=== PATIENT | male | born 1935 | race Caucasian/White ===

== ENCOUNTER 2025-04-16 12:04 | Inpatient (IN) | payer OTHER, SELFPAY ==
[2025-04-16] VITALS (13 sets, daily range): BP systolic 145–209; BP diastolic 69–104; BMI 37.8
--- NOTE | 2025-04-16 08:02 | ED.GENMED ---
History of Present Illness
<Kerry Fletcher PA-C - Last Filed: 04/16/25 10:52>
General
Chief Complaint: Rectal Bleeding
Source: patient
Exam Limitations: none
Time Seen by Provider: 04/16/25 07:40
History of Present Illness
History of Present Illness:
89yoM with a history of peripheral artery disease, hypertension, hyperlipidemia, type 2 diabetes, and obesity presenting with his for evaluation of rectal bleeding. Patient started with diarrhea yesterday. He also had some abdominal
discomfort which felt like gas pains. He felt like he had to have a bowel movement this morning but when he went to the bathroom, he started having rectal bleeding. He reports 2 episodes of BRBPR. No history of rectal bleeding in the past. He is
chronically short of breath which is no worse than usual. He denies any chest pain, dizziness, syncope. Only blood thinner is a baby aspirin. Colonoscopy in 2007 showed medium sized internal hemorrhoids and diverticulosis.
Past History
<Kerry Fletcher PA-C - Last Filed: 04/16/25 10:52>
Past History
ED Past Medical History: HTN, Hypercholesterolemia and NIDDM
ED Past Surgical History: Appendectomy
Social History
Tobacco: Non-smoker
Drug: None
Personal:
Living: with family
Phy Exam
<Kerry Fletcher PA-C - Last Filed: 04/16/25 10:52>
General Physical Exam
General Presentation: well appearing and no apparent distress
General Skin: warm and dry
General Habitus: normal and elderly
General Mental: alert
ENT Exam
ENT Exam: normocephalic
Pulmonary Exam
Pulmonary Exam: no respiratory distress
Gastrointestinal Exam
Gastrointestinal Exam: soft, non distended and other (+Tenderness in periumbilical region. Abdomen obese. No rebound or guarding.)
Stool: other (Maroon colored stool obtained on digital rectal exam. Small non-thrombosed external hemorrhoid. )
Neurological Exam
Neurological Exam: alert
Corina Coma Scale
Eye Opening: Spontaneous
Verbal Response: Oriented
Motor Response: Obeys Commands
GCS Total Score: 15
Skin Exam
Skin Exam: normal color and warm/dry
Psychiatric Exam
Psychiatric Exam: normal mood/affect
<Mary Hughes MD - Last Filed: 04/16/25 10:19>
Corina Coma Scale
GCS Total Score: 15
Course
<Kerry Fletcher PA-C - Last Filed: 04/16/25 10:52>
Orders/Labs/Results
Orders:
Orders
04/16/25 07:53
CT Abd/pelvis W Iv Cont Urgent
Comment:
Reason For Exam: generalized abd pain, rectal bleeding
04/16/25 08:02
Type+Screen Urgent
Basic Metabolic Panel Urgent
Complete Blood Count/With Diff Urgent
Lipase Urgent
PT/INR [Prothrombin Time] Urgent
PTT Urgent
04/16/25 08:38
0.9% Sodium Chloride 500 ml [Nss] 500 ml IV BOLUS
04/16/25 09:00
LFT [Nwoyg-Qekb-Grsjvbq] Urgent
04/16/25 10:38
Piperacillin/Tazo 4.5 Gram [Zosyn] 4.5 gram in 100 ml IV NOW
Abnormal Lab Results
04/16/25
08:02
RBC 4.56 L 10^6/uL
(4.70-6.10)
MCV 96.9 H fL
(80.0-94.0)
MCH 32.0 H pg
(27.0-31.0)
RDW 15.8 H %
(11.5-14.5)
MPV 10.7 H fL
(7.4-10.4)
Abs Immat Gran (auto) 0.1 H 10^3/uL
(0-0.05)
Absolute Lymphs (auto) 0.7 L 10^3/uL
(1.2-3.4)
Immature Gran % 1.8 H %
(0-0.5)
Neutrophils % 78.3 H %
(42.2-75.2)
Lymphocytes % 9.7 L %
(20.5-51.1)
Sodium 134 L mmol/L
(135-145)
BUN 25 H mg/dl
(9-20)
Creatinine 1.5 H mg/dL
(0.7-1.3)
Glucose 119 H mg/dl
(70-99)
04/16/25 08:02
04/16/25 08:02
Vital Signs
Initial and Last Documented VS:
Initial Vital Signs
Temp Pulse Resp BP Pulse Ox
97.2 F 74 22 209/99 97
04/16/25 07:29 04/16/25 07:29 04/16/25 07:29 04/16/25 07:29 04/16/25 07:29
Last Documented Vital Signs
Temp Pulse Resp BP Pulse Ox
97.2 F 60 9 182/71 97
04/16/25 07:29 04/16/25 09:45 04/16/25 09:45 04/16/25 09:41 04/16/25 08:06
<Mary Hughes MD - Last Filed: 04/16/25 10:19>
Orders/Labs/Results
Orders:
Orders
04/16/25 07:53
CT Abd/pelvis W Iv Cont Urgent
Comment:
Reason For Exam: generalized abd pain, rectal bleeding
04/16/25 08:02
Type+Screen Urgent
Basic Metabolic Panel Urgent
Complete Blood Count/With Diff Urgent
Lipase Urgent
PT/INR [Prothrombin Time] Urgent
PTT Urgent
04/16/25 08:38
0.9% Sodium Chloride 500 ml [Nss] 500 ml IV BOLUS
04/16/25 09:00
LFT [[id number]-Vhsm-Llyzmmy] Urgent
04/16/25 10:38
Piperacillin/Tazo 4.5 Gram [Zosyn] 4.5 gram in 100 ml IV NOW
Abnormal Lab Results
04/16/25
08:02
RBC 4.56 L 10^6/uL
(4.70-6.10)
MCV 96.9 H fL
(80.0-94.0)
MCH 32.0 H pg
(27.0-31.0)
RDW 15.8 H %
(11.5-14.5)
MPV 10.7 H fL
(7.4-10.4)
Abs Immat Gran (auto) 0.1 H 10^3/uL
(0-0.05)
Absolute Lymphs (auto) 0.7 L 10^3/uL
(1.2-3.4)
Immature Gran % 1.8 H %
(0-0.5)
Neutrophils % 78.3 H %
(42.2-75.2)
Lymphocytes % 9.7 L %
(20.5-51.1)
Sodium 134 L mmol/L
(135-145)
BUN 25 H mg/dl
(9-20)
Creatinine 1.5 H mg/dL
(0.7-1.3)
Glucose 119 H mg/dl
(70-99)
04/16/25 08:02
04/16/25 08:02
Vital Signs
Initial and Last Documented VS:
Initial Vital Signs
Temp Pulse Resp BP Pulse Ox
97.2 F 74 22 209/99 97
04/16/25 07:29 04/16/25 07:29 04/16/25 07:29 04/16/25 07:29 04/16/25 07:29
Last Documented Vital Signs
Temp Pulse Resp BP Pulse Ox
97.2 F 60 9 182/71 97
04/16/25 07:29 04/16/25 09:45 04/16/25 09:45 04/16/25 09:41 04/16/25 08:06
<Kerry Fletcher PA-C - Last Filed: 04/16/25 10:52>
MDM/Problems Addressed
Differential Diagnosis Includes:
89yoM here after 2 episodes of BRBPR this morning. Started with diarrhea and abd discomfort yesterday. Patient is hypertensive with otherwise stable vitals. He is well appearing in no distress. Maroon colored stool noted on rectal exam. Differential
diagnosis includes: hemorrhoidal bleeding, diverticular bleeding, colitis, AVM, malignancy
Initial ED plan: Check abdominal labs, coags, type and screen, and CT abdomen.
<Kerry Fletcher PA-C - Last Filed: 04/16/25 10:52>
*Pulse Oximetry
SaO2: 97
Oxygen Mode of Delivery: Room air
Patient hypoxic: no
*Critical Care Note
Total Time (30-74mins, 75-104mins- exclusive of procedures): Not Applicable
<Kerry Fletcher PA-C - Last Filed: 04/16/25 10:52>
Update Note
Update Note:
Hemoglobin is normal at 14.6. Creatinine 1.[address] shows evidence of very mild diverticulitis. IV Zosyn ordered although he is not meeting any SIRS criteria. Will admit for further management.
ED Attending Note
<Kerry Fletcher PA-C - Last Filed: 04/16/25 10:52>
-
Portions of this chart may have been created with voice recognition software.� Occasional wrong word or��sound alike� substitutions may have occurred due to the inherent limitations of voice recognition software.
<Mary Hughes MD - Last Filed: 04/16/25 10:19>
ED Attending Note
Patient seen and examined by attending physician: Yes
I performed the substantive portion of visit, reviewed & personally made and approve the management plan that is documented in note by myself or ELDA.: Yes
ED Attending Note:
Patient appears nontoxic but pale. Patient has periumbilical abdominal tenderness on exam without rebound or guarding. He is breathing comfortably. We are awaiting CT results.
Discharge Plan
Departure
Patient Disposition: Admit
Date of Disposition: 04/16/25
Time of Disposition: 10:40
Presentation/result/management discussed w/ accepting MD/DO: Hospitalist
Discharge Problem:
Rectal bleeding, Diverticulitis
Prescriptions:
No Action
metformin 500 MG tablet
1,000 mg PO DAILY
allopurinol 100 MG tablet
100 mg PO BID
aspirin 81 MG tablet,delayed release (DR/EC)
81 mg PO DAILY
omeprazole 20 MG capsule,delayed release(DR/EC)
20 mg PO DAILYPRN PRN (Reason: acid reflux)
fluticasone propionate 1 SPRAY spray,suspension
1 spray intranasal DAILYPRN PRN (Reason: congestion)
metformin 500 mg Tablet
500 mg PO QPM
omega 5-hgn-fzk-fish oil [Fish Oil] 1,000 (120-180) mg Capsule
2 cap PO DAILY
furosemide [Lasix] 40 mg Tablet
40 mg PO DAILY
carvedilol [Coreg] 12.5 mg Tablet
12.5 mg PO BID
glimepiride 1 mg Tablet
1 mg PO DAILY
valsartan 320 mg Tablet
320 mg PO DAILY
dorzolamide-timolol (PF) [Cosopt (PF)] 2-0.5 % Dropperette
1 drp LEFT EYE BID
Referrals:
Ramon Acosta MD [Family Provider]
Interventions
Interventions:
*Risk Screen - Suicide Last Done: 04/16/25 07:29
*General Assessment Last Done: 04/16/25 07:29
*Neglect/Abuse Screening Last Done: 04/16/25 07:29
*ED- Fall Risk Assessment Last Done: 04/16/25 07:29
*ED COVID-19 Vaccine History Last Done: 04/16/25 07:29
*ED Influenza Vaccine History Last Done: 04/16/25 07:29
JC-Pqyptc-Uoqcqnjbae Assessment Last Done: 04/16/25 08:39
ED- Cardiac Assessment Last Done: 04/16/25 08:39
ED- Pulmonary Assessment Last Done: 04/16/25 08:39
Discharge Date and Time
Print Language: KINYARWANDA
[2025-04-16 08:14] LABS: Hematocrit 44.2 % (39.0-52.0); Hemoglobin 14.6 g/dL (13.0-18.0); Mean Corp Hgb Conc. 33.0 g/dL (33.0-37.0); Mean Corpuscular Volume 96.9 fL (80.0-94.0); Nucleated Red Blood Cells % 0 % (-); Platelet Count 169 10^3/uL (130-400); Red Cell Dist. Width 15.8 % (11.5-14.5)
[2025-04-16 08:22] LABS: INR 1.04; PT 13.9 Sec (11.4-14.6)
[2025-04-16 08:23] LABS: APTT 29.2 Sec (23.4-35.0)
[2025-04-16 08:37] LABS: Blood Urea Nitrogen 25 mg/dl (9-20); Calcium 8.8 mg/dl (8.4-10.2); Carbon Dioxide 25 mmol/L (22-30); Chloride 106 mmol/L (98-107); Glucose 119 mg/dl (70-99); Lipase 142 U/L (23-300); Sodium 134 mmol/L (135-145); eGFR 44.78
[2025-04-16 09:30] LABS: ALT (SGPT) 17 U/L (0-50); AST (SGOT) 21 U/L (17-59); Albumin 3.6 g/dl (3.5-5.0); Alkaline Phosphatase 46 U/L (38-126); Total Protein 6.4 g/dl (6.3-8.2)
[2025-04-16] MEDS: NSS 500 IV (09:40)
[2025-04-16] MEDS: ZOSYN 100 IV (11:15)
--- NOTE | 2025-04-16 11:25 | CM ---
Patient seen at bedside in ED. Patient lives with in 2 story home. Patient PCP is Dr. Acosta and he uses the [facility] in [place]. Patient has 2 stair lifts for to use and no other DME for patient. Patient is primary caregiver for who does
use a walker. Patient to call daughter for supports and transporting her home. CM will continue to follow for discharge planning needs.
Plan; home with patient ; watch for home VN vs no needs pending medical treatment plan
--- NOTE | 2025-04-16 11:47 | HPS.HSE ---
Addendum entered and electronically signed by Farhan Weldon DO 04/16/25 13:47:
Spoke with both Dr. Padgett and Dr. Julita Rivera regarding need for long-term aspirin.
Neither alliance party could find a valid indication for aspirin.
Therefore we will not resume on discharge.
Original Note:
Family Physician
-
Family Physician: Ramon Acosta MD
Chief Complaint
-
Bloody Stools
History of Present Illness
89 yo male, here accompanied by his , complaining of 2-3 episodes of bright red bloody bowel movements yesterday, some abdominal discomfort as well. Mild nausea but no vomiting.
Today had maroon colored stools.
Denies hx of the same.
Denies chest pain, SOB, lightheadedness, fevers, chills.
Medical History
Past Medical History
Past Medical History: Reports Other
Additional Past Medical History:
DM 2
Hyperlipidemia
Essential hypertension
PAD
BPH
Hemorrhoids
Diverticulosis
Past Surgical History: Reports Appendectomy and Orthopedic
Social History
Tobacco: Former Smoker
Alcohol: Former
Drug: None
Personal:
Living: With Family
Employment: Retired
Family History
Family History: Not pertinent
Allergies / Home Medications
Allergies reflects when Allergies were last updated in [facility].
Home Medications with original date entered in [facility]
Allergy/Medication List:
Allergies
Allergy/AdvReac Type Severity Reaction Status Date / Time
indomethacin (From Indocin) Allergy abdominal Verified 04/16/25 07:28
discomfort
Home Medications
allopurinol 100 mg tablet 100 mg PO BID Gout 07/05/17
aspirin 81 mg tablet,delayed release 81 mg PO DAILY Blood Clot Prevention/Tx 07/05/17
fluticasone propionate 50 mcg/actuation nasal spray,suspension 1 spray intranasal DAILYPRN PRN congestion 07/05/17
metformin 500 mg tablet 1,000 mg PO DAILY Diabetes 07/05/17
omeprazole 20 mg capsule,delayed release 20 mg PO DAILYPRN PRN acid reflux 07/05/17
carvedilol 12.5 mg tablet (Coreg) 12.5 mg PO BID Blood Pressure 04/16/25
dorzolamide-timolol (PF) 2 %-0.5 % eye drops in a dropperette (Cosopt (PF)) 1 drp LEFT EYE BID Eye Condition 04/16/25
furosemide 40 mg tablet (Lasix) 40 mg PO DAILY Fluid Retention/Swelling 04/16/25
glimepiride 1 mg tablet 1 mg PO DAILY Diabetes 04/16/25
metformin 500 mg tablet 500 mg PO QPM Diabetes 04/16/25
omega 4-dcw-arq-fish oil 1,000 mg (120 mg-180 mg) capsule (Fish Oil) 2 cap PO DAILY Supplement 04/16/25
valsartan 320 mg tablet 320 mg PO DAILY Blood Pressure 04/16/25
Review of Systems
-
History Source: Patient and Family
A 12 point ROS was completed and negative except as noted: Yes
Abdomen/GI: Reports Abdominal Pain, Nausea and Bloody Stools; Denies Vomiting
Physical Exam
Vital Signs
Vital Signs
Temp Pulse Resp BP Pulse Ox
97.2 F 60 9 182/71 97
04/16/25 07:29 04/16/25 09:45 04/16/25 09:45 04/16/25 09:41 04/16/25 08:06
Physical Exam
General: Well Developed, Well Nourished, No Apparent Distress and Comfortable
HEENT: NormoCephalic, Anicteric and Moist mucous membranes
Respiratory: Clear
Cardiac: S1/S2 and Regular Rhythm
GI: Soft, Non Distended and Tender (Very mild right upper quadrant tenderness, no guarding)
Genito-urinary: Deferred by me
Musculoskeletal: No Clubbing, No Cyanosis, Edema, Left Lower Extremity and Edema, Right Lower Extremity
Skin: Warm and Dry
Neuro: AO x 3
Hematologic/Lymphatic: No Lymphadenopathy
Psych: Calm
Laboratory Results
-
04/16/25 08:02
04/16/25 08:02
Laboratory Results
PT 13.9 Sec (11.4-14.6) 04/16/25 08:02
INR 1.04 04/16/25 08:02
APTT 29.2 Sec (23.4-35.0) 04/16/25 08:02
Total Bilirubin 0.6 mg/dl (0.2-1.3) 04/16/25 09:00
AST 21 U/L (17-59) 04/16/25 09:00
ALT 17 U/L (0-50) 04/16/25 09:00
Alkaline Phosphatase 46 U/L (38-126) 04/16/25 09:00
Lipase 142 U/L (23-300) 04/16/25 08:02
Impression/Plan
-
Acute lower GI bleed -likely diverticular. Less likely ischemic or inflammatory, or infectious. Hemoglobin 14.6. Stop further aspirin, as there is no strong indication from what I see. Will discuss with his registered dental assistant rda and vascular surgeon.
Patient states aspirin was started by his primary care doctor.
Admit to MedSurg. Monitor hemoglobin. Clear liquid diet.
Hemodynamically stable.
I did speak with GI, Dr. Carreon, he states there is no strong indication for GI consult currently given normal hemoglobin. He has no plans for endoscopic evaluation.
CT scan reviewed, shows very mild sigmoid diverticulitis. However, clinically I doubt diverticulitis. Will hold further antibiotics.
Hyponatremia -sodium 134. Will just monitor for now. Could be related to blood loss.
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 Will recheck in the morning. Previous creatinine in our system was from 2018.
PAD -known to vascular surgery, Dr. Padgett. Patient denies history of lower extremity revascularization.
Essential hypertension -blood pressure elevated. Resume home meds.
DM 2 without hyperglycemia -hold glimepiride and metformin, use low resistance aspart scale.
Hyperlipidemia
Nephrolithiasis -noted to have nonobstructing left renal stone on CT. Asymptomatic.
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 Watch for any signs of urinary retention.
History of gout -continue allopurinol.
Obesity due to excess calories
DNR -confirmed with patient.
updated at the bedside.
[2025-04-16 17:09] LABS: Glucose - Point of Care 96 mg/dl (70-99)
[2025-04-16] MEDS: NSS 1000 IV (17:09)
--- NOTE | 2025-04-16 17:55 | PTCARENOTE ---
Updated patient's daughter at the bedside. She is concerned about the fact that patient is admitted with rectal bleeding, with no GI consult. This RN informed by Dr. Weldon to read the note for any updates--no further communication provided other
than notes in [facility]. Daughter unhappy. This RN apologetic and unable to provide further answers for family.
[2025-04-16] MEDS: COREG 12.5 MG PO (20:59)
[2025-04-16] MEDS: ZYLOPRIM 100 MG PO (20:59)
[2025-04-16] MEDS: TIMOPTIC 0.5% OPHTHALMIC SOLUTION 1 DROP LEFT EYE (21:00)
[2025-04-16] MEDS: TRUSOPT 2% OPHTHALMIC SOLUTION 1 DROP LEFT EYE (21:01)
[2025-04-16 21:27] LABS: Glucose - Point of Care 106 mg/dl (70-99)
[2025-04-17] MEDS: NSS 1000 IV (04:35)
[2025-04-17 07:04] LABS: Hematocrit 37.9 % (39.0-52.0); Hemoglobin 12.1 g/dL (13.0-18.0); Mean Corp Hgb Conc. 31.9 g/dL (33.0-37.0); Mean Corpuscular Volume 101.6 fL (80.0-94.0); Nucleated Red Blood Cells % 0 % (-); Platelet Count 167 10^3/uL (130-400); Red Cell Dist. Width 15.4 % (11.5-14.5)
[2025-04-17 07:30] LABS: Blood Urea Nitrogen 22 mg/dl (9-20); Calcium 8.1 mg/dl (8.4-10.2); Carbon Dioxide 25 mmol/L (22-30); Chloride 107 mmol/L (98-107); Estimated Creatinine Clearance 37 ml/min; Glucose 94 mg/dl (70-99); Potassium 4.3 mmol/L (3.5-5.1); Sodium 135 mmol/L (135-145); eGFR 38.53
[2025-04-17 07:38] LABS: Glucose - Point of Care 101 mg/dl (70-99)
[2025-04-17 07:50] VITALS: BP 154/92
[2025-04-17] MEDS: DIOVAN 320 MG PO (08:05)
[2025-04-17] MEDS: LASIX 40 MG PO (08:05)
[2025-04-17] MEDS: ZYLOPRIM 100 MG PO ×2 (08:05→21:11)
[2025-04-17] MEDS: COREG 12.5 MG PO ×2 (08:05→21:22)
[2025-04-17] MEDS: TIMOPTIC 0.5% OPHTHALMIC SOLUTION 1 DROP LEFT EYE ×2 (08:07→21:10)
[2025-04-17] MEDS: TRUSOPT 2% OPHTHALMIC SOLUTION 1 DROP LEFT EYE ×2 (08:09→21:10)
--- NOTE | 2025-04-17 08:42 | W.PN.HOSP.TC ---
Today's Communication/Plan
-
GI consult
Monitor hemoglobin
Assessment / Plan
Assessment / Plan
Gen-AAOx3, NAD
HEENT-NC, AT, anicteric, clear oral mm
Neck-supple
CV-reg, no M, +S1/S2
Lungs-clear B/L
Abd-soft, NT, ND
Ext-no edema
Musculoskeletal-no cyanosis, clubbing
Skin-warm and dry
Neuro-grossly non-focal
Psych-calm, cooperative
Acute lower GI bleed -likely diverticular. Less likely ischemic or inflammatory, or infectious. Hemoglobin 14.6. Stop further aspirin, as there is no strong indication from what I see. Will discuss with his multi media specialist and vascular surgeon.
Patient states aspirin was started by his primary care doctor.
Hemoglobin down slightly to 12.1.
Hemodynamically stable.
CT scan reviewed, shows very mild sigmoid diverticulitis. However, clinically I doubt diverticulitis. Will hold further antibiotics.
Passed 3 bloody bowel movements yesterday, maroon stool this morning. Will ask GI for formal consult. Consideration of flexible sigmoidoscopy versus colonoscopy.
Currently on clear liquid diet.
Hyponatremia -sodium improved, 135.
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 Will recheck in the morning. Previous creatinine in our system was from 2018.
PAD -known to vascular surgery, Dr. Padgett. Patient denies history of lower extremity revascularization.
Essential hypertension -continue home medications.
DM 2 without hyperglycemia -hold glimepiride and metformin, use low resistance aspart scale. Hemoglobin A1c pending. Glucose 94 this morning.
Hyperlipidemia
Nephrolithiasis -noted to have nonobstructing left renal stone on CT. Asymptomatic.
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 Watch for any signs of urinary retention.
History of gout -continue allopurinol.
Obesity due to excess calories
DNR -confirmed with patient.
Anticipated Discharge: 24 - 48 hours
Subjective/Interval History
-
Date of Service: April 17, 2025
Patient seen and examined. Complaining of generalized abdominal discomfort. Passing maroonish stools this morning.
Objective Data
-
Labs:
Laboratory Results
04/17/25
06:29
WBC 6.8
Hgb 12.1 L
Hct 37.9 L
Plt Count 167
Sodium 135
Potassium 4.3
Chloride 107
Carbon Dioxide 25
BUN 22 H
Creatinine 1.7 H
Glucose 94
Calcium 8.1 L
Vital Signs:
Vital Signs
Temp Pulse Resp BP Pulse Ox
98.2 F 67 18 154/92 96
04/17/25 07:50 04/17/25 07:50 04/17/25 07:50 04/17/25 07:50 04/17/25 07:50
I&O
04/16/25 04/17/25 04/18/25
06:59 06:59 06:59
Intake Total 700 / 700
Balance 700 / 700
Review of Systems
-
History Source: Patient
All other systems: Reviewed and negative
[2025-04-17 09:14] LABS: Glycohemoglobin (HgbA1c) 6.2 % (4.0-5.9)
--- NOTE | 2025-04-17 09:42 | CON.GI ---
Addendum entered and electronically signed by João Carreon DO 04/17/25 11:48:
I saw and examined the patient.
The [employer]'s note was reviewed and I agree with the note.
Comment: Mr. Navarrete is a very pleasant 89 y.o male with a past medical history of HTN, HLD, NIDDM, CKD, PAD (previously on ASA), obesity, colon polyps, and diverticulosis who presented to the ED with painless, large volume hematochezia. Denies any
prior history of GI bleeding in the past. On daily ASA but no other anticoagulations or NSAIDs. Last colonoscopy 2013 unremarkable aside from diverticulosis and internal hemorrhoids. No prior history of diverticular bleeding or diverticulitis in the
past. Given his multiple episodes (5-6) of large volume painless bloody stools, came to the ED for further evaluation. HD-stable without compensatory tachycardia and found to have Hgb 14.6 CT Abd/pelvis 04/16/25 revealed findings concerning for very
mild proximal sigmoid colon acute diverticulitis and hepatic fatty infiltration along with severe prostate hypertrophy. He denied any LLQ abdominal pain or other fevers/chills. He was managed conservatively on admission however repeat labs with Hgb
14.6 -> 12.1 this AM. Currently, reports resolving bloody stools and passed a small amount of old dark blood and small amount with wiping. Clinically, his presentation is most consistent with a diverticular hemorrhage. No other concern for
diverticulitis and suspect likely an overcall and suspect likely from blood resulting in reactive changes. Does not seem consistent with hemorrhoidal bleed. Cannot exclude potential bleeding angioectasia/AVM or potential bleeding polyp/lesion
although seems much less likely. Clinically, his bleeding seems to have lessened and suspect his previous hemoglobin of 14 was likely hemoconcentrated and subsequent drop to 12 likely from his previous bleed and lag in his blood work. Currently,
he denies any further large-volume hematochezia or other symptoms suggest diverticulitis. Given his Hgb level and overall clinical stability, favor continued monitoring for signs to suggest recurrent bleeding and would defer any plans for
colonoscopy at this time. If patient were to have recurrent bleeding would obtain stat CTA and attempts of localization. Would defer prepping patient for a colonoscopy and ongoing monitoring at this time.
Recommendations:
- Continue CLD today
- Trend Hgb with CBC q daily
- Agree with holding IV abx as no concern for diverticulitis and suspect changes on CT likely from blood products
- If recurrent large volume hematochezia, significant drop in Hgb (> 2 grams), or HD-instability would obtain stat CTA in attempts of localization and consult IR if (+)
- No plans for a colonoscopy at this time as without any further signs to suggest recurrent bleeding. However, would reconsider pending clinical course
- Could consider an eventual colonoscopy as outpatient for further evaluation if patient wishes although would need to review risks/benefits given his age
- Strict avoidance of all NSAIDs
- Rest of care as per primary team
GI team will continue to follow. Please call with any questions or concerns.
Original Note:
Consultation
-
Date/Time Consultation Requested: 04/17/25844
Date/Time Consultation Performed: 04/17/25944
Requesting Provider: Farhan Weldon DO
Performing Provider: RADHA Maurer, João Carreon DO
Reason for Consultation: rectal bleeding
Medical History
Chief Complaint / HPI
Chief Complaint: rectal bleeding
History of Present Illness:
Pt is a 89yo with hx HTN, hyperlipidemia, NIDDM, BPH,CKD, PAD on daily ASA, diverticulosis, hemorrhoids, hx colon polyps, obesity, gout, appe, tonsillectomy, prior ortho surgery with noted onset of rectal bleeding with red then maroon stool. On
admission noted with hbg 14.6 with drop to 12.1 after admission. In review with patient on admission noted with some lower abdominal pain initial diarrhea with large volumes of bright red blood per rectum. He continued with some darker red less
volume stools after admission. CT with IV contrast on admission with mild proximal sigmoid diverticulitis, mild fatty infiltration, renal cysts, prostate hypertrophy. Pt otherwise denies odynophagia, dysphagia, GERD, nausea, vomiting, current
abdominal pain, diarhea, constipation or black stools. No anticoagulation use prior to admission.
09/2012- Dr. Rosalia hills in bowel habits colonoscopy- diverticulosis, IH
01/2008 Dr. Wiseman for hx polyps, colonoscopy diverticulosis, IH
Past Medical History
Past Medical History: HTN, Hypercholesterolemia, NIDDM, Renal Failure (CKD) and Other (glaucoma, BPH, PAD, diverticulosis, hemorrhoids, colon polyps, obesity, gout )
Past Surgical History: Appendectomy, Orthopedic, Tonsilectomy and Other (thyroid cyst removal)
Social History
Tobacco: Former Smoker
Alcohol: Former
Drug: None
Personal:
Living: With Family
Employment: Retired
Family History
Family History: Other (mother with ovarian CA)
Allergies / Home Medications
Allergy/AdvReac Type Severity Reaction Status Date / Time
indomethacin (From Indocin) Allergy abdominal Verified 04/16/25 07:28
discomfort
�Medication �Instructions �Recorded
allopurinol 100 mg tablet 100 mg PO BID Gout 07/05/17
aspirin 81 mg tablet,delayed 81 mg PO DAILY Blood Clot 07/05/17
release Prevention/Tx
fluticasone propionate 50 1 spray intranasal DAILYPRN PRN 07/05/17
mcg/actuation nasal congestion
spray,suspension
metformin 500 mg tablet 1,000 mg PO DAILY Diabetes 07/05/17
omeprazole 20 mg capsule,delayed 20 mg PO DAILYPRN PRN acid reflux 07/05/17
release
carvedilol 12.5 mg tablet (Coreg) 12.5 mg PO BID Blood Pressure 04/16/25
dorzolamide-timolol (PF) 2 %-0.5 % 1 drp LEFT EYE BID Eye Condition 04/16/25
eye drops in a dropperette (Cosopt
(PF))
furosemide 40 mg tablet (Lasix) 40 mg PO DAILY Fluid 04/16/25
Retention/Swelling
glimepiride 1 mg tablet 1 mg PO DAILY Diabetes 04/16/25
metformin 500 mg tablet 500 mg PO QPM Diabetes 04/16/25
omega 3-yrl-pwb-fish oil 1,000 mg 2 cap PO DAILY Supplement 04/16/25
(120 mg-180 mg) capsule (Fish Oil)
valsartan 320 mg tablet 320 mg PO DAILY Blood Pressure 04/16/25
Review of Systems
-
History Source: Patient and Family
Constitutional: Reports No Symptoms
EENT: Reports No Symptoms
Respiratory: Reports No Symptoms
Cardiac: Reports No Symptoms
Abdomen/GI: Reports Abdominal Pain (at onset now resolved ) and Bloody Stools
: Reports No Symptoms
Musculoskeletal: Reports No Symptoms
Skin: Reports No Symptoms
Neurological: Reports No Symptoms
Endocrine: Reports No Symptoms
Hematologic/Lymphatic: Reports Bleeding
Vital Signs
Temp Pulse Resp BP Pulse Ox
98.2 F 67 18 154/92 96
04/17/25 07:50 04/17/25 07:50 04/17/25 07:50 04/17/25 07:50 04/17/25 07:50
Physical Exam
Exam
General: Well Developed, Well Nourished and No Apparent Distress
HEENT: Normocephalic and Anicteric
Respiratory: Clear
Cardiac: Regular Rhythm
GI: Soft, Non Tender and Non Distended
Rectal: Other (bright red per nursing record )
Musculoskeletal: No Clubbing and No Cyanosis
Skin: Warm and Dry
Neuro: Awake, Alert and AO x 3
Psych: Calm
Results
WBC 6.8 10^3/uL (4.8-10.8) 04/17/25 06:29
Hgb 12.1 g/dL (13.0-18.0) L 04/17/25 06:29
Hct 37.9 % (39.0-52.0) L 04/17/25 06:29
MCV 101.6 fL (80.0-94.0) H 04/17/25 06:29
Plt Count 167 10^3/uL (130-400) 04/17/25 06:29
Absolute Neuts (auto) 5.2 10^3/uL (1.4-6.5) 04/17/25 06:29
PT 13.9 Sec (11.4-14.6) 04/16/25 08:02
INR 1.04 04/16/25 08:02
APTT 29.2 Sec (23.4-35.0) 04/16/25 08:02
Sodium 135 mmol/L (135-145) 04/17/25 06:29
Potassium 4.3 mmol/L (3.5-5.1) 04/17/25 06:29
Chloride 107 mmol/L (98-107) 04/17/25 06:29
Carbon Dioxide 25 mmol/L (22-30) 04/17/25 06:29
BUN 22 mg/dl (9-20) H 04/17/25 06:29
Creatinine 1.7 mg/dL (0.7-1.3) H 04/17/25 06:29
Calcium 8.1 mg/dl (8.4-10.2) L 04/17/25 06:29
Total Bilirubin 0.6 mg/dl (0.2-1.3) 04/16/25 09:00
AST 21 U/L (17-59) 04/16/25 09:00
ALT 17 U/L (0-50) 04/16/25 09:00
Alkaline Phosphatase 46 U/L (38-126) 04/16/25 09:00
Lipase 142 U/L (23-300) 04/16/25 08:02
Diagnostic Image Results:
04/16/25 CT Abd/pelvis W Iv Cont
IMPRESSION: Findings suggesting very mild proximal sigmoid colon acute diverticulitis. No evidence of perforation nor abscess formation. New. Clinical correlation recommended.
mild hepatic fatty infiltration. Stable. Right renal cyst. Enlarged. Nonobstructing left renal stone. New. Severe prostate hypertrophy. Progressed
Prior GI Procedures:
Colonoscopy:
09/2012- Dr. Rosalia hills in bowel habits colonoscopy- diverticulosis, IH
01/2008 Dr. Wiseman for hx polyps, colonoscopy diverticulosis, IH
Assessment / Plan
-
Pt is a 89yo with hx HTN, hyperlipidemia, NIDDM, BPH, CKD, PAD on daily ASA, diverticulosis, hemorrhoids, hx colon polyps, obesity, gout, appe, tonsillectomy, prior ortho surgery with noted onset of rectal bleeding with red then maroon stool. On
admission noted with hbg 14.6 with drop to 12.1 after admission. In review with patient on admission noted with some lower abdominal pain initial diarrhea with large volumes of bright red blood per rectum. He continued with some darker red less
volume stools after admission. CT with IV contrast on admission with mild proximal sigmoid diverticulitis, mild fatty infiltration, renal cysts, prostate hypertrophy. Pt otherwise denies odynophagia, dysphagia, GERd, nausea, vomiting, current
abdominal pain, diarhea, constipation or black stools. No anticoagulation use prior to admission.
09/2012- Dr. Rosalia hills in bowel habits colonoscopy- diverticulosis, IH
01/2008 Dr. Wiseman for hx polyps, colonoscopy diverticulosis, IH
-sudden onset of rectal bleeding- large volume on onset
-mild abdominal pain at onset with mild diverticulitis on CT -- pain now resolved
-CKD
-PAD on daily ASA
-hx diverticulosis
-hx colon polyps
-hx hemorrhoids
other med problems:
HTN, hyperlipidemia, NIDDM, BPH, obesity, appe, tonsillectomy, prior ortho surgery, gout
PLAN:
etiology of symptoms with concern for diverticular bleed with less blood passed today
pain now resolved less likely diverticulitis as noted on CT--no fever or WBC elevation, agree with holding antibiotics
clear diet-- nursing will text prior to dinner to see if can advance if no further bleeding
if recurrent bleeding consider CTA if large volume vs need for colonoscopy
if resolved Dr. Carreon to review risk/benefit of eventual colonoscopy OP
trend hbg with some drop after admission 14.6--12.1
family updated - reviewed if any large volume recurrent bleeding after discharge to return, all questions answered
-
-
Thank you for consultation and allowing me to participate in the patient's care. Please call the professor of business administration GI physician during the after hours with any questions or concerns.
[2025-04-17 11:55] LABS: Glucose - Point of Care 102 mg/dl (70-99)
[2025-04-17 15:59] VITALS: BP 149/85
[2025-04-17 17:48] LABS: Glucose - Point of Care 76 mg/dl (70-99)
[2025-04-17 21:18] LABS: Glucose - Point of Care 100 mg/dl (70-99)
[2025-04-17 23:07] VITALS: BP 173/92
--- NOTE | 2025-04-18 06:21 | W.PN.GI.CBS2 ---
Today's Communication / Plan
-
No further bleeding and stable H/h, suspect resolved diverticular bleed. May advance diet as tolerated to low-fiber, low-residue diet. No plans for a colonoscopy while inpatient, however still recommend outpatient follow-up with GI to further
discuss. Rest of care as outlined below. GI will sign-off, please re-contact with any questions or concerns.
Assessment / Plan
-
Mr. Navarrete is a very pleasant 89 y.o male with a past medical history of HTN, HLD, NIDDM, CKD, PAD (previously on ASA), obesity, colon polyps, and diverticulosis who presented to the ED with painless, large volume hematochezia. Denies any prior
history of GI bleeding in the past. On daily ASA but no other anticoagulations or NSAIDs. Last colonoscopy 2013 unremarkable aside from diverticulosis and internal hemorrhoids. No prior history of diverticular bleeding or diverticulitis in the past.
Given his multiple episodes (5-6) of large volume painless bloody stools, came to the ED for further evaluation. HD-stable without compensatory tachycardia and found to have Hgb 14.6 CT Abd/pelvis 04/16/25 revealed findings concerning for very mild
proximal sigmoid colon acute diverticulitis and hepatic fatty infiltration along with severe prostate hypertrophy. He denied any LLQ abdominal pain or other fevers/chills. He was managed conservatively on admission however repeat labs with Hgb 14.6
-> 12.1 this AM. Currently, reports resolving bloody stools and passed a small amount of old dark blood and small amount with wiping. Clinically, his presentation is most consistent with a diverticular hemorrhage. No other concern for
diverticulitis and suspect likely an overcall and suspect likely from blood resulting in reactive changes. Does not seem consistent with hemorrhoidal bleed. Cannot exclude potential bleeding angioectasia/AVM or potential bleeding polyp/lesion
although seems much less likely. Clinically, his bleeding seems to have lessened and suspect his previous hemoglobin of 14 was likely hemoconcentrated and subsequent drop to 12 likely from his previous bleed and lag in his blood work. Currently,
he denies any further large-volume hematochezia or other symptoms suggest diverticulitis. Given his Hgb level and overall clinical stability, favor continued monitoring for signs to suggest recurrent bleeding and would defer any plans for
colonoscopy at this time. If patient were to have recurrent bleeding would obtain stat CTA and attempts of localization. Would defer prepping patient for a colonoscopy and ongoing monitoring at this time.
#LGIB c/f
#Diverticular Hemorrhage
#CT Imaging c/f Proximal Sigmoid Colon Acute Diverticulitis
#Acute Blood Loss Anemia
#PAD (previously on ASA)
Recommendations:
- May ADAT to low-fiber, low-residue diet given resolution of bleeding
- Trend Hgb with CBC q daily
- Agree with holding antibiotics as no concern for diverticulitis as without any symptoms and suspect changes on CT likely from blood products
- Given stable H/h and without any further recurrent bloody stools, would defer pursuing a colonoscopy at this time
- Patient was also agreeable and wishes to hold off on this as well
- Could consider an eventual colonoscopy as outpatient for further evaluation if patient wishes although would need to review risks/benefits given his age. Hesitant to pursue and discussed with his family as well on 04/17
- Will help arrange f/u with me as an outpatient in the GI office
- Strict avoidance of all NSAIDs
- Rest of care as per primary team
Discussed with primary internal medicine team this AM. GI will sign-off, please re-contact with any questions or concerns.
Subjective
Subjective
Date of Service: April 18, 2025
- Reported having old dark bloody stools on 04/17, no signs of recurrent bleeding
- Hgb stable 12.1 -> 12.3. Otherwise, no acute events overnight
Resting comfortably this AM, denies any further large volume bloody stools. Had one darker brown bowel movement with small amount of old blood in toilet and with wiping. Continues to deny any abdominal pain and hoping to eat more solid food. Wishes
to defer pursuing a colonoscopy at this time.
Objective
Data Reviewed
Laboratory Data:
Laboratory Results
PT 13.9 Sec (11.4-14.6) 04/16/25 08:02
INR 1.04 04/16/25 08:02
APTT 29.2 Sec (23.4-35.0) 04/16/25 08:02
Total Bilirubin 0.6 mg/dl (0.2-1.3) 04/16/25 09:00
AST 21 U/L (17-59) 04/16/25 09:00
ALT 17 U/L (0-50) 04/16/25 09:00
Alkaline Phosphatase 46 U/L (38-126) 04/16/25 09:00
Lipase 142 U/L (23-300) 04/16/25 08:02
Vital Signs and I&O:
Vital Signs
Temp Pulse Resp BP Pulse Ox
97.0 F 74 18 173/92 95
04/17/25 23:07 04/17/25 23:07 04/17/25 23:07 04/17/25 23:07 04/17/25 23:07
I&O
04/16/25 04/17/25 04/18/25
06:59 06:59 06:59
Intake Total 700 / 700 220 / 220
Balance 700 / 700 220 / 220
Physical Exam
Physical Exam
HEENT: Anicteric and Moist mucous membranes
Pulmonary: Other (Normal WOB on room air)
GI: Soft, Non Distended and Non Tender
Extremities: Warm
Neuro: Non Focal
[2025-04-18 06:58] LABS: Hematocrit 38.5 % (39.0-52.0); Hemoglobin 12.3 g/dL (13.0-18.0); Mean Corp Hgb Conc. 31.9 g/dL (33.0-37.0); Mean Corpuscular Volume 99.7 fL (80.0-94.0); Nucleated Red Blood Cells % 0 % (-); Platelet Count 184 10^3/uL (130-400); Red Cell Dist. Width 15.7 % (11.5-14.5)
[2025-04-18 07:23] LABS: Blood Urea Nitrogen 21 mg/dl (9-20); Calcium 8.4 mg/dl (8.4-10.2); Carbon Dioxide 26 mmol/L (22-30); Chloride 104 mmol/L (98-107); Estimated Creatinine Clearance 33 ml/min; Glucose 102 mg/dl (70-99); Potassium 4.0 mmol/L (3.5-5.1); Sodium 136 mmol/L (135-145); eGFR 33.72
[2025-04-18 07:42] LABS: Glucose - Point of Care 113 mg/dl (70-99)
[2025-04-18 07:54] VITALS: BP 184/79
[2025-04-18] MEDS: TIMOPTIC 0.5% OPHTHALMIC SOLUTION 1 DROP LEFT EYE ×2 (08:18→20:28)
[2025-04-18] MEDS: DIOVAN 320 MG PO (08:18)
[2025-04-18] MEDS: LASIX 40 MG PO (08:18)
[2025-04-18] MEDS: ZYLOPRIM 100 MG PO ×2 (08:18→20:26)
[2025-04-18] MEDS: COREG 12.5 MG PO ×2 (08:18→20:27)
[2025-04-18] MEDS: TRUSOPT 2% OPHTHALMIC SOLUTION 1 DROP LEFT EYE ×2 (08:20→20:28)
--- NOTE | 2025-04-18 09:00 | W.PN.HOSP.TC ---
Today's Communication/Plan
-
Hold Lasix, valsartan
Advance diet
Labs in the morning
Assessment / Plan
Assessment / Plan
Gen-AAOx3, NAD
HEENT-NC, AT, anicteric, clear oral mm
Neck-supple
CV-reg, no M, +S1/S2
Lungs-clear B/L
Abd-soft, NT, ND
Ext-no edema
Musculoskeletal-no cyanosis, clubbing
Skin-warm and dry
Neuro-grossly non-focal
Psych-calm, cooperative
Acute lower GI bleed -likely diverticular. Less likely ischemic or inflammatory, or infectious. Hemoglobin 14.6 on admission, 12.1 yesterday, 12.3 today. Aspirin permanently discontinued.
Hemodynamically stable. Bleeding appears to have resolved. Last bowel movement was 04/17, described as bloody and black.
CT scan reviewed, shows very mild sigmoid diverticulitis. However, clinically I doubt diverticulitis. Will hold further antibiotics.
No plans for colonoscopy this admission. Spoke with Dr. Carreon.
GI service plans on advancing to low residue diet. Recommend outpatient follow-up for consideration of possible colonoscopy.
Hyponatremia -resolved.
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 Suspect contrast-induced nephropathy. Check bladder scan. Hold further Lasix and valsartan.
BMP in the morning. Discussed with patient.
PAD -known to vascular surgery, Dr. Padgett. Patient denies history of lower extremity revascularization.
Essential hypertension -blood pressure elevated. Getting carvedilol, furosemide, valsartan. Hold further furosemide and valsartan for PUJA. Could add nifedipine if needed.
DM 2 without hyperglycemia -hold glimepiride and metformin, use low resistance aspart scale. Hemoglobin A1c 6.2%. Glucose 102 this morning.
Hyperlipidemia
Nephrolithiasis -noted to have nonobstructing left renal stone on CT. Asymptomatic.
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 Watch for any signs of urinary retention.
History of gout -continue allopurinol.
Obesity due to excess calories
DNR -confirmed with patient.
Dispo -possible discharge Saturday if PUJA resolved.
Anticipated Discharge: Within 24 hours
Subjective/Interval History
-
Date of Service: April 18, 2025
Patient seen and examined. No complaints. No further bleeding.
Objective Data
-
Labs:
Laboratory Results
04/18/25
06:13
WBC 6.7
Hgb 12.3 L
Hct 38.5 L
Plt Count 184
Sodium 136
Potassium 4.0
Chloride 104
Carbon Dioxide 26
BUN 21 H
Creatinine 1.9 H
Glucose 102 H
Calcium 8.4
Vital Signs:
Vital Signs
Temp Pulse Resp BP Pulse Ox
97.6 F 60 17 184/79 95
04/18/25 07:54 04/18/25 07:54 04/18/25 07:54 04/18/25 07:54 04/18/25 07:54
I&O
04/17/25 04/18/25 04/19/25
06:59 06:59 06:59
Intake Total 700 / 700 220 / 220
Balance 700 / 700 220 / 220
Review of Systems
-
History Source: Patient
All other systems: Reviewed and negative
[2025-04-18 11:30] LABS: Glucose - Point of Care 136 mg/dl (70-99)
[2025-04-18 15:20] VITALS: BP 153/60
[2025-04-18 16:41] LABS: Glucose - Point of Care 87 mg/dl (70-99)
[2025-04-18 21:26] LABS: Glucose - Point of Care 127 mg/dl (70-99)
[2025-04-18 23:08] VITALS: BP 123/51
[2025-04-19 07:35] VITALS: BP 153/59
[2025-04-19 07:40] LABS: Glucose - Point of Care 119 mg/dl (70-99)
[2025-04-19 08:04] LABS: Hematocrit 37.9 % (39.0-52.0); Hemoglobin 12.3 g/dL (13.0-18.0); Mean Corp Hgb Conc. 32.5 g/dL (33.0-37.0); Mean Corpuscular Volume 101.1 fL (80.0-94.0); Nucleated Red Blood Cells % 0 % (-); Platelet Count 179 10^3/uL (130-400); Red Cell Dist. Width 15.5 % (11.5-14.5)
[2025-04-19] MEDS: COREG 12.5 MG PO ×2 (08:23→20:43)
[2025-04-19] MEDS: ZYLOPRIM 100 MG PO ×2 (08:23→20:43)
[2025-04-19] MEDS: TRUSOPT 2% OPHTHALMIC SOLUTION 1 DROP LEFT EYE ×2 (08:23→20:43)
[2025-04-19] MEDS: TIMOPTIC 0.5% OPHTHALMIC SOLUTION 1 DROP LEFT EYE ×2 (08:23→20:43)
[2025-04-19 08:48] LABS: Blood Urea Nitrogen 25 mg/dl (9-20); Calcium 8.8 mg/dl (8.4-10.2); Carbon Dioxide 29 mmol/L (22-30); Chloride 104 mmol/L (98-107); Estimated Creatinine Clearance 33 ml/min; Glucose 114 mg/dl (70-99); Potassium 4.4 mmol/L (3.5-5.1); Sodium 136 mmol/L (135-145); eGFR 33.72
[2025-04-19 11:31] LABS: Glucose - Point of Care 113 mg/dl (70-99)
--- NOTE | 2025-04-19 13:40 | W.PN.HOSP.TC ---
Today's Communication/Plan
-
Hold Lasix, valsartan
Advance diet
F/u renal function
Assessment / Plan
Assessment / Plan
Gen-AAOx3, NAD
HEENT-NC, AT, anicteric, clear oral mm
Neck-supple
CV-reg, no M, +S1/S2
Lungs-clear B/L
Abd-soft, NT, ND
Ext-no edema
Musculoskeletal-no cyanosis, clubbing
Skin-warm and dry
Neuro-grossly non-focal
Psych-calm, cooperative
Acute lower GI bleed -likely diverticular. Less likely ischemic or inflammatory, or infectious. Hemoglobin 14.6 on admission, 12.1 yesterday, 12.3 today. Aspirin permanently discontinued.
Hemodynamically stable. Bleeding appears to have resolved. Last bowel movement was 04/17, described as bloody and black.
CT scan reviewed, shows very mild sigmoid diverticulitis. However, clinically I doubt diverticulitis. Will hold further antibiotics.
No plans for colonoscopy this admission. Spoke with Dr. Carreon.
GI service plans on advancing to low residue diet. Recommend outpatient follow-up for consideration of possible colonoscopy.
Hyponatremia -resolved.
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 Suspect contrast-induced nephropathy. Hold further Lasix and valsartan.
F/u BMP in the morning. Discussed with patient.
PAD -known to vascular surgery, Dr. Padgett. Patient denies history of lower extremity revascularization.
Essential hypertension -blood pressure elevated. Getting carvedilol, furosemide, valsartan. Hold further furosemide and valsartan for PUJA. Could add nifedipine if needed.
DM 2 without hyperglycemia -hold glimepiride and metformin, use low resistance aspart scale. Hemoglobin A1c 6.2%. Glucose 102 this morning.
Hyperlipidemia
Nephrolithiasis -noted to have nonobstructing left renal stone on CT. Asymptomatic.
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 Watch for any signs of urinary retention. F/u Urology outpatient
History of gout -continue allopurinol.
Obesity due to excess calories
DNR -confirmed with patient.
Anticipated Discharge: 24 - 48 hours
Subjective/Interval History
-
Date of Service: April 19, 2025
No acute events overnight
Objective Data
-
Labs:
Laboratory Results
04/19/25
07:13
WBC 6.4
Hgb 12.3 L
Hct 37.9 L
Plt Count 179
Sodium 136
Potassium 4.4
Chloride 104
Carbon Dioxide 29
BUN 25 H
Creatinine 1.9 H
Glucose 114 H
Calcium 8.8
Vital Signs:
Vital Signs
Temp Pulse Resp BP Pulse Ox
97.8 F 77 18 153/59 94
04/19/25 07:35 04/19/25 07:35 04/19/25 07:35 04/19/25 07:35 04/19/25 07:35
I&O
04/18/25 04/19/25 04/20/25
06:59 06:59 06:59
Intake Total 220 / 220 1080 / 1080
Balance 220 / 220 1080 / 1080
Review of Systems
-
History Source: Patient
All other systems: Reviewed and negative
Data Reviewed
-
CT Scan: Report Reviewed by me
Labs: Labs Reviewed by me
[2025-04-19 15:30] VITALS: BP 154/67
[2025-04-19 16:40] LABS: Glucose - Point of Care 102 mg/dl (70-99)
--- NOTE | 2025-04-19 18:05 | CM ---
Hold Lasix, valsartan
Advance diet
F/u renal function
Pt is independent at home and provides care to his . Will watch for DC needs
Plan: Home no needs
[2025-04-19 21:13] LABS: Glucose - Point of Care 118 mg/dl (70-99)
[2025-04-19 23:07] VITALS: BP 131/50
[2025-04-20 07:28] LABS: Glucose - Point of Care 127 mg/dl (70-99)
[2025-04-20 07:45] VITALS: BP 165/70
[2025-04-20 07:56] LABS: Hematocrit 37.4 % (39.0-52.0); Hemoglobin 12.1 g/dL (13.0-18.0); Mean Corp Hgb Conc. 32.4 g/dL (33.0-37.0); Mean Corpuscular Volume 101.1 fL (80.0-94.0); Platelet Count 183 10^3/uL (130-400); Red Cell Dist. Width 15.6 % (11.5-14.5)
[2025-04-20] MEDS: ZYLOPRIM 100 MG PO (08:04)
[2025-04-20] MEDS: COREG 12.5 MG PO (08:04)
[2025-04-20] MEDS: TIMOPTIC 0.5% OPHTHALMIC SOLUTION 1 DROP LEFT EYE (08:04)
[2025-04-20] MEDS: TRUSOPT 2% OPHTHALMIC SOLUTION 1 DROP LEFT EYE (08:04)
[2025-04-20 08:27] LABS: ALT (SGPT) 18 U/L (0-50); AST (SGOT) 24 U/L (17-59); Albumin 3.6 g/dl (3.5-5.0); Alkaline Phosphatase 41 U/L (38-126); Blood Urea Nitrogen 27 mg/dl (9-20); Calcium 8.7 mg/dl (8.4-10.2); Carbon Dioxide 27 mmol/L (22-30); Chloride 105 mmol/L (98-107); Estimated Creatinine Clearance 33 ml/min; Glucose 132 mg/dl (70-99); Potassium 4.4 mmol/L (3.5-5.1); Sodium 136 mmol/L (135-145); Total Protein 6.0 g/dl (6.3-8.2); eGFR 33.72
[2025-04-20] MEDS: LR 1000 IV (09:17)
--- NOTE | 2025-04-20 11:13 | W.PN.HOSP.TC ---
Addendum entered and electronically signed by Cj Edmond MD 04/20/25 14:47:
[id number]
Original Note:
Today's Communication/Plan
-
Hold lasix, valsartan
F/u BMP in 3-5 days
F/u PCP within 1 wee kand GI outpt
No ASA
Return to hospital for further bleeding
Assessment / Plan
Assessment / Plan
Gen-AAOx3, NAD
HEENT-NC, AT, anicteric, clear oral mm
Neck-supple
CV-reg, no M, +S1/S2
Lungs-clear B/L
Abd-soft, NT, ND
Ext-no edema
Musculoskeletal-no cyanosis, clubbing
Skin-warm and dry
Neuro-grossly non-focal
Psych-calm, cooperative
Acute lower GI bleed -likely diverticular. Less likely ischemic or inflammatory, or infectious. Hemoglobin 14.6 on admission, 12.1 yesterday, 12.3 today. Aspirin permanently discontinued.
Hemodynamically stable. Bleeding appears to have resolved. Last bowel movement was 04/17, described as bloody and black.
CT scan reviewed, shows very mild sigmoid diverticulitis. However, clinically I doubt diverticulitis. Will hold further antibiotics.
No plans for colonoscopy this admission. Spoke with Dr. Carreon.
GI service plans on advancing to low residue diet. Recommend outpatient follow-up for consideration of possible colonoscopy.
Hyponatremia -resolved.
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 Suspect contrast-induced nephropathy v CKD. After discussion with patient, Scr 1.8 in June and appx 1.5 in December - also admits it fluctuates. At this point as no change in Scr,
urinating well - will hold on Lasix and valsartan. Repeat BMP in 3-5 days. If increase leg swelling, restart lasix and inform PCP. F/u PCP with BMp and potentially restarting regimen.
PAD -known to vascular surgery, Dr. Padgett. Patient denies history of lower extremity revascularization.
Essential hypertension -blood pressure elevated. Getting carvedilol, furosemide, valsartan. Hold further furosemide and valsartan for PUJA. Could add nifedipine if needed.
DM 2 without hyperglycemia -hold glimepiride and metformin, use low resistance aspart scale. Hemoglobin A1c 6.2%. Glucose 102 this morning.
Hyperlipidemia
Nephrolithiasis -noted to have nonobstructing left renal stone on CT. Asymptomatic.
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 Watch for any signs of urinary retention. F/u Urology outpatient
History of gout -continue allopurinol.
Obesity due to excess calories
DNR -confirmed with patient.
More than 30 minutes spent in discharge including
Final examination of the patient
Summarizing hospital stay
Instructions for continuing care to all relevant caregivers
Preparation of discharge records, prescriptions, and referral forms
Total time spent (in minutes): 36
Anticipated Discharge: Today
Subjective/Interval History
-
Date of Service: April 20, 2025
No acute events overnight
Objective Data
-
Labs:
Laboratory Results
04/20/25
07:17
WBC 6.4
Hgb 12.1 L
Hct 37.4 L
Plt Count 183
Sodium 136
Potassium 4.4
Chloride 105
Carbon Dioxide 27
BUN 27 H
Creatinine 1.9 H
Glucose 132 H
Calcium 8.7
Total Bilirubin 0.6
AST 24
ALT 18
Alkaline Phosphatase 41
Vital Signs:
Vital Signs
Temp Pulse Resp BP Pulse Ox
97.3 F 57 18 165/70 96
04/20/25 07:45 04/20/25 07:45 04/20/25 07:45 04/20/25 07:45 04/20/25 08:10
I&O
04/19/25 04/20/25 04/21/25
06:59 06:59 06:59
Intake Total 1080 / 1080 960 / 960
Balance 1080 / 1080 960 / 960
Review of Systems
-
History Source: Patient
All other systems: Reviewed and negative
Data Reviewed
-
CT Scan: Report Reviewed by me
Labs: Labs Reviewed by me
--- NOTE | 2025-04-20 11:19 | W.DS.TRANS ---
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
-
Discharge Instructions:
Discharge Diagnosis/Procedures Acute lower GI bleed -likely diverticular.
CKD
Diet Low Cholesterol,Low Fat,Diabetic, Carb
Controlled
Blood Work cbc and bmp in 3-5 days with pcp
Instructions:
Stand-Alone Forms:
Changes to Home Medications: Yes
Discharge Medications:
DC Medications w/original date entered in [facility]
allopurinol 100 mg tablet 100 mg PO BID Gout 07/05/17
fluticasone propionate 50 mcg/actuation nasal spray,suspension 1 spray intranasal DAILYPRN PRN congestion 07/05/17
metformin 500 mg tablet 1,000 mg PO DAILY Diabetes 07/05/17
omeprazole 20 mg capsule,delayed release 20 mg PO DAILYPRN PRN acid reflux 07/05/17
carvedilol 12.5 mg tablet (Coreg) 12.5 mg PO BID Blood Pressure 04/16/25
dorzolamide-timolol (PF) 2 %-0.5 % eye drops in a dropperette (Cosopt (PF)) 1 drp LEFT EYE BID Eye Condition 04/16/25
furosemide 40 mg tablet (Lasix) 40 mg PO DAILY Fluid Retention/Swelling 04/16/25
Held on 04/20/25. Instructions: Resume on 04/28/25. until cleared by PCP with renal function - or if lower extremity swelling increases
glimepiride 1 mg tablet 1 mg PO DAILY Diabetes 04/16/25
metformin 500 mg tablet 500 mg PO QPM Diabetes 04/16/25
omega [id number] oil 1,000 mg (120 mg-180 mg) capsule (Fish Oil) 2 cap PO DAILY Supplement 04/16/25
valsartan 320 mg tablet 320 mg PO DAILY Blood Pressure 04/16/25
Held on 04/20/25. Instructions: Resume on 04/28/25. hold until cleared by PCP with Renal Function observed
Home Medication Changes
furosemide 40 mg tablet (Lasix) 40 mg PO DAILY Fluid Retention/Swelling 04/16/25
Held on 04/20/25. Instructions: Resume on 04/28/25. until cleared by PCP with renal function - or if lower extremity swelling increases
valsartan 320 mg tablet 320 mg PO DAILY Blood Pressure 04/16/25
Held on 04/20/25. Instructions: Resume on 04/28/25. hold until cleared by PCP with Renal Function observed
Pending Results: No
[2025-04-20 11:30] VITALS: BP 180/88
--- NOTE | 2025-04-20 11:30 | CM ---
CM reviewed chart, patient seen beside.
Patient for d/c today- denies needs from CM.
IMM verbally reviewed, provided with copy, placed in chart.
Patient confirms transport home.
CM will continue to follow.
Plan; home no needs.
== END 2025-04-20 11:51 | disposition home or self-care (01) | DRG 378 ==
LOC: 4 WEST ACU 12:04
PROVIDERS: Physician Assistant; ADMITTING PHYSICIAN Hospitalist; ATTENDING PHYSICIAN Internal Medicine; CONSULT PHYSICIAN Student in an Organized Health Care Education/Training Program; EMERGENCY PHYSICIAN Emergency Medicine; FAMILY PHYSICIAN Internal Medicine
DX: K57.33 Diverticulitis of large intestine without perforation or abscess with bleeding (principal); D62 Acute posthemorrhagic anemia; E87.1 Hypo-osmolality and hyponatremia; N17.9 Acute kidney failure, unspecified; Z87.891 Personal history of nicotine dependence; I12.9 Hypertensive chronic kidney disease with stage 1 through stage 4 chronic kidney disease, or unspecified chronic kidney disease; E11.22 Type 2 diabetes mellitus with diabetic chronic kidney disease; N18.32 Chronic kidney disease, stage 3b; Z66 Do not resuscitate; E66.09 Other obesity due to excess calories; Z68.37 Body mass index [BMI] 37.0-37.9, adult; Z79.82 Long term (current) use of aspirin; Z79.899 Other long term (current) drug therapy
CPT/HCPCS: 74177; 80048; 80053; 80076; 82570; 82962; 83036; 83690; 84300; 85025; 85027; 85610; 85730; 86850; 86900; 86901; 96361; 96365; 99284; Q9967